=== PATIENT | male | born 1980 | race Caucasian/White ===

== ENCOUNTER 2017-05-03 22:36 | Emergency (ER) | payer OTHER ==
[~2017-05-03] VITALS: Ht 172.7 cm; Wt 98.0 kg
[~2017-05-03 22:36] MED LIST: CEPH500C3 PO; Z.0.NO CURRENT MEDS
[2017-05-03 22:42] VITALS: BP 151/73; PULSE 88; RESP 15; TEMP 99; O2SAT 98
[2017-05-03] MEDS ORDERED: TETANUS/DIPHTHERIA TOXOID ADULT 0.5 ML VIAL IM ONE (23:30)
[2017-05-03] MEDS ORDERED: IBUPROFEN 600 MG TAB PO ONE (23:30)
[2017-05-03] MEDS ORDERED: CYCLOBENZAPRINE HCL 10 MG TAB PO ONE (23:30)
[2017-05-03 23:37] VITALS: BP 136/74; PULSE 79; RESP 17; TEMP 98.5; O2SAT 96
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
[2017-05-04] MEDS ORDERED: CYCL1TAB29 PO (00:40)
== END 2017-05-04 01:17 | disposition home or self-care (01) ==
LOC: NEPE 22:36
DX: S76.212A Strain of adductor muscle, fascia and tendon of left thigh, initial encounter (principal); V22.4XXA Motorcycle driver injured in collision with two- or three-wheeled motor vehicle in traffic accident, initial encounter; Y92.410 Unspecified street and highway as the place of occurrence of the external cause; Z23 Encounter for immunization
CPT/HCPCS: 70450; 71010; 72125; 73130; 73503; 90471; 90714